=== PATIENT | female | born 1985 | race African-American/Black ===

== ENCOUNTER 2019-03-13 07:41 | Emergency (ER) | payer SELFPAY ==
[~2019-03-13] VITALS: Ht 167.6 cm; Wt 81.2 kg
--- OUTSIDE RECORDS SUMMARY | 2019-03-13 07:44 | XMS REPORT ---
Author Author Yasmany Avery Organization [employer] Address Unknown Phone Unavailable Care Team Providers Care Software Configuration Manager Name Role Phone Yasmany Avery CP Unavailable Allergies, Adverse Reactions, Alerts Substance Reaction Event Type N.K.D.A. Info Not Available Non Drug Allergy Encounters Encounter Location Date establish pcp [facility] May 08, 2014 Problems Problem Type Condition ICD-9 Code Onset Dates Condition Status Problem Unspecified hereditary hemolytic anemia 282.9 Active Assessment Routine general medical examination at health care facility V70.0 Active Problem Attention or concentration deficit 799.51 Active Assessment Attention or concentration deficit 799.51 Active Assessment Unspecified hereditary hemolytic anemia 282.9 Active Social History Social History Element Qualifiers Date Reported Tobacco Use: . Are you a: current smoker, How many years have you smoked? 3, Pack Years 14 May 08, 2014 Use of recreational / street drugs? . Answer: No May 08, 2014 Marital Status: . Single May 08, 2014 Do you drink alcohol? . Status: No May 08, 2014 Vital Signs Date/Time: May 08, 2014 Weight 171.8 lbs Height 66.5 in Temperature 98.6 F Cardiac Monitoring Heart Rate 83 /min Blood Pressure Diastolic 46 mm Hg Blood Pressure Systolic 132 mm Hg Summary Purpose [employer] Submission
--- OUTSIDE RECORDS SUMMARY | 2019-03-13 07:44 | XMS REPORT | Continuity of Care Document ---
Author Author [facility] Interface Address Unknown Phone Unavailable Problems Problem Status Onset Date Classification Date Reported Comments Source Unspecified hereditary hemolytic anemia Active Problem 05/20/2014 [id number] Routine general medical examination at health care facility Active Diagnosis 05/20/2014 [id number] Attention or concentration deficit Active Problem 05/20/2014 [id number] Medications Medication Details Route Status Patient Instructions Ordering Provider Order Date Source Allergies, Adverse Reactions, Alerts Substance Category Reaction Severity Reaction type Status Date Reported Comments Source N.K.D.A. Adverse Reaction Info Not Available Adverse Reaction Active 05/08/2014 [id number] Immunizations Immunization Date Given Site Status Last Updated Comments Source Results Order Name Results Value Reference Range Date Interpretation Comments Source Vital Signs Vital Sign Value Date Comments Source Weight 171.8 05/08/2014 [id number] Height 66.5 05/08/2014 2.[id number] Temperature Oral (F) 98.6 F 05/08/2014 2.[id number] Heart Rate 83 05/08/2014 2.16.840.1.155419.4.391.11.35149 Diastolic (mm Hg) 46 05/08/2014 2.16.840.1.258790.4.391.11.87235 Systolic (mm Hg) 132 05/08/2014 2.[id number] Encounters Location Location Details Encounter Type Encounter Number Reason For Visit Attending Provider ADM Date DC Date Status Source [facility] pcp [id number] 05/08/2014 05/08/2014 [id number] Procedures Procedure Code Date Perfomer Comments Source
== END 2019-03-13 08:28 | disposition home or self-care (01) ==
LOC: ER 07:41
DX: H10.022 Other mucopurulent conjunctivitis, left eye (principal); D64.9 Anemia, unspecified
CPT/HCPCS: 99282

== ENCOUNTER → 2020-11-19 | Outpatient (CLI) | payer OTHER ==
[~2020-11-19] MED LIST: COVID-19 VACC, MRNA(MODERNA)/PF 100 MCG/0.5 ML VIAL IM ONE
== END ==
LOC: VACCPMC 10:54
DX: Z23 Encounter for immunization (principal); Z20.822 Contact with and (suspected) exposure to COVID-19
CPT/HCPCS: 91301

== ENCOUNTER → 2020-12-13 | Outpatient (CLI) | payer OTHER | END | disposition home or self-care (01) | LOC: VACCPMC 11:39 | DX: Z23 Encounter for immunization (principal); Z20.822 Contact with and (suspected) exposure to COVID-19 ==